=== PATIENT | male | born 1990 | race Hispanic/Latino ===

== ENCOUNTER → 2022-11-29 | Outpatient (CLI) | payer BC ==
[2022-11-29 15:35] LABS: T4 (THYROXINE) 9.8 ug/dL (4.7-13.3); THYROID STIMULATING HORMONE 0.8 uIU/mL (0.36-3.74)
== END | disposition home or self-care (01) ==
LOC: LAB 13:52
PROVIDERS: ATTEND Physician Assistant
DX: I10 Essential (primary) hypertension (principal); R07.9 Chest pain, unspecified
CPT/HCPCS: 36415; 82533; 84436; 84443

== ENCOUNTER → 2024-11-25 | Outpatient (CLI) | payer OTHER | END | disposition home or self-care (01) | LOC: RAH 13:51 | PROVIDERS: ATTEND Nurse Practitioner Family | DX: Z13.6 Encounter for screening for cardiovascular disorders (principal) | CPT/HCPCS: 75571 ==